=== PATIENT | male | born 1970 | race Two or more races ===

== ENCOUNTER 2022-01-20 10:53 | Emergency (ER) | payer BC, OTHER ==
[~2022-01-20] VITALS: Ht 175.3 cm; Wt 112.5 kg
[2022-01-20 12:15] LABS: Basophils # (auto) 0.1 10 ^3/uL (0-0.2); Basophils % (auto) 1.4 % (0.0-2.0); Eosinophils # (auto) 0.2 10 ^3/uL (0-0.8); Eosinophils % (auto) 1.7 % (0.0-7.0); Hematocrit 38.5 % (41.0-53.0); Hemoglobin 12.9 g/dL (13.5-17.5); Lymphocytes # (auto) 3.1 10 ^3/uL (0.4-5.4); Lymphocytes % (auto) 29.9 % (10.0-50.0); Mean Corpuscular Hemoglobin 27.4 pg (28.0-32.0); Mean Corpuscular Hgb Conc. 33.4 g/dL (32.0-36.0); Mean Corpuscular Volume 82.1 fL (80.0-100.0); Monocytes # (auto) 0.8 10 ^3/uL (0-1.3); Monocytes % (auto) 7.3 % (0.0-12.0); Neutrophils # (auto) 6.2 10 ^3/uL (1.6-8.6); Neutrophils % (auto) 59.7 % (37.0-80.0); Nucleated Red Blood Cells % 0.1 %; Red Blood Cells 4.69 10^6/uL (4.5-5.90); Red Cell Distribution Width 14.2 % (11.8-14.3); White Blood Cell 10.3 10^3/uL (4.4-10.8)
[2022-01-20 12:33] LABS: Albumin 3.1 g/dL (3.4-5.0); Calcium 8.7 mg/dL (8.5-10.1); Potassium 3.1 mmol/L (3.5-5.1)
[2022-01-20 12:36] LABS: BUN/Creatinine Ratio 16.3; Bilirubin, Total 0.5 mg/dL (0.2-1.0); Total Protein 7.2 g/dL (6.4-8.2)
[2022-01-20] MEDS ORDERED: PANTOPRAZOLE 40 MG TAB PO ONE (14:15)
[2022-01-20] MEDS ORDERED: HYDROcodone-ACET 5/325MG TAB PO ONE (14:15)
[2022-01-20] MEDS ORDERED: ONDANSETRON ODT 4 MG TAB PO ONE (14:15)
[2022-01-20] MEDS ORDERED: PANT40TA2 PO (14:25)
[2022-01-20] MEDS ORDERED: ONDA-144 PO (14:25)
[2022-01-20] MEDS ORDERED: POTASSIUM EFFERVESENT TAB 25 MEQ PO ONE (15:15)
[2022-01-20 15:19] VITALS: BP 135/78
== END 2022-01-20 15:20 | disposition home or self-care (01) ==
LOC: ER 10:53
DX: K21.9 Gastro-esophageal reflux disease without esophagitis (principal); E11.9 Type 2 diabetes mellitus without complications; I10 Essential (primary) hypertension; Z88.8 Allergy status to other drugs, medicaments and biological substances
CPT/HCPCS: 36415; 76705; 80053; 82150; 83690; 84484; 85025; 93005; 99285; Q0162

== ENCOUNTER 2023-01-25 15:28 | Inpatient (IN) | payer BC, OTHER ==
[~2023-01-25] VITALS: Ht 175.3 cm; Wt 91.9 kg
[~2023-01-25 15:28] MED LIST: ONDA-144 PO; PANT40TA2 PO
[2023-01-25 16:47] LABS: Basophils # (auto) 0.1 10 ^3/uL (0-0.2); Lymphocytes # (auto) 2.1 10 ^3/uL (0.4-5.4); Mean Corpuscular Hgb Conc. 33.4 g/dL (32.0-36.0); Neutrophils # (auto) 7.5 10 ^3/uL (1.6-8.6); Red Cell Distribution Width 14.6 % (11.8-14.3)
[2023-01-25 16:49] LABS: Basophils % (auto) 1.1 % (0.0-2.0); Eosinophils # (auto) 0.2 10 ^3/uL (0-0.8); Eosinophils % (auto) 1.6 % (0.0-7.0); Hematocrit 39.5 % (41.0-53.0); Hemoglobin 13.2 g/dL (13.5-17.5); Lymphocytes % (auto) 19.2 % (10.0-50.0); Mean Corpuscular Hemoglobin 26.5 pg (28.0-32.0); Mean Corpuscular Volume 79.4 fL (80.0-100.0); Monocytes # (auto) 0.9 10 ^3/uL (0-1.3); Monocytes % (auto) 8.2 % (0.0-12.0); Neutrophils % (auto) 69.9 % (37.0-80.0); Nucleated Red Blood Cells % 0.2 %; Red Blood Cells 4.98 10^6/uL (4.5-5.90); White Blood Cell 10.8 10^3/uL (4.4-10.8)
[2023-01-25 17:11] LABS: Albumin 3.2 g/dL (3.4-5.0); Calcium 8.7 mg/dL (8.5-10.1)
[2023-01-25 17:12] LABS: BUN/Creatinine Ratio 17.1 (10.0-20.0); Bilirubin, Total 0.4 mg/dL (0.2-1.0); Total Protein 7.6 g/dL (6.4-8.2)
[2023-01-25 17:42] LABS: Potassium 2.8 mmol/L (3.5-5.1)
[2023-01-25] MEDS ORDERED: POTASSIUM CHL 20 Meq TABLET PO ONE (18:00)
[2023-01-25] MEDS ORDERED: POTASSIUM CHL 20MEQ/100ML 100 ML IV ONE (18:00)
[2023-01-25 19:22] LABS: Urine Bacteria NONE SEEN /hpf (None Seen); Urine Blood Negative /uL (Negative); Urine Hyaline Cast FEW /lpf (0 - 2); Urine Specific Gravity 1.008 (1.001-1.035); Urine WBC <1 /hpf (0 - 3)
[2023-01-25] MEDS ORDERED: TEMAZEPAM 15 MG CAP PO PRN (21:45)
[2023-01-25] MEDS ORDERED: ONDANSETRON HCL 4 MG/2 ML VIAL IV PRN (21:45)
[2023-01-25] MEDS ORDERED: ACETAMINOPHEN 325 MG TAB PO PRN (21:45)
[2023-01-25] MEDS ORDERED: DEXTROSE (50%) 50ML SYRG IV PRN (21:45)
[2023-01-25] MEDS: ACCU-CHEK COMFORT CURVE STRIP VI SCH (22:09)
[2023-01-25] MEDS: InsuLIN REG 1unit/0.01ml Soln (100units/ml) SC SCH (22:19)
[2023-01-26 05:22] LABS: BUN/Creatinine Ratio 17.2 (10.0-20.0); Potassium 3.5 mmol/L (3.5-5.1)
[2023-01-26 05:23] LABS: Calcium 8.4 mg/dL (8.5-10.1)
[2023-01-26] MEDS ORDERED: SODIUM CHLORIDE 0.9% 500 ML IV ONE (06:30)
[2023-01-26] MEDS: ACCU-CHEK COMFORT CURVE STRIP VI SCH ×4 (06:30→22:23)
[2023-01-26] MEDS: InsuLIN REG 1unit/0.01ml Soln (100units/ml) SC SCH ×4 (06:31→22:24)
[2023-01-26] MEDS: FUROSEMIDE 40 MG TAB PO SCH (11:07)
[2023-01-26] MEDS: POTASSIUM CHL 20 Meq TABLET PO SCH (11:07)
[2023-01-26] MEDS: VALSARTAN 80 MG TAB PO SCH (11:08)
[2023-01-26] MEDS ORDERED: LACTATED RINGER'S 1,000 ML IV ONE (12:00)
[2023-01-26 12:32] LABS: Free T4 (Free Thyroxine) 1.29 ng/dL (0.89-1.76)
[2023-01-26 12:33] LABS: Folate (Folic Acid) 12.97 ng/mL (5.38-24)
[2023-01-26 21:58] VITALS: BP 121/70
[2023-01-26] MEDS ORDERED: HYDR25TA4 PO (22:12)
[2023-01-26] MEDS ORDERED: ATEN-60 PO (22:12)
[2023-01-26] MEDS ORDERED: EMPA1TAB3 PO (22:12)
[2023-01-26] MEDS ORDERED: POTA-220 PO (22:12)
[2023-01-26] MEDS ORDERED: METF-370 PO (22:12)
[2023-01-26] MEDS ORDERED: VALS320T15 PO (22:12)
[2023-01-26] MEDS ORDERED: FAMO-12 PO (22:16)
[2023-01-26] MEDS ORDERED: ATOR40TA52 PO (22:16)
[2023-01-26] MEDS ORDERED: FURO1TAB31 PO (22:16)
[2023-01-26] MEDS ORDERED: CHOL20007 PO (22:16)
[2023-01-26] MEDS ORDERED: GLIP5TAB12 PO (22:17)
[2023-01-27] MEDS: ACCU-CHEK COMFORT CURVE STRIP VI SCH ×3 (06:25→17:00)
[2023-01-27] MEDS: InsuLIN REG 1unit/0.01ml Soln (100units/ml) SC SCH ×3 (06:26→17:00)
[2023-01-27 09:00] VITALS: BP 129/75
[2023-01-27] MEDS: VALSARTAN 80 MG TAB PO SCH (10:23)
[2023-01-27] MEDS: POTASSIUM CHL 20 Meq TABLET PO SCH (10:23)
[2023-01-27] MEDS: FUROSEMIDE 40 MG TAB PO SCH (10:23)
[2023-01-27 14:33] VITALS: BP 142/75
[2023-01-27] MEDS ORDERED: POTASSIUM CHL 20 Meq TABLET PO ONE (15:15)
[2023-01-27] MEDS ORDERED: POTA-220 PO (15:46)
[2023-01-27 16:56] VITALS: BP 132/91
== END 2023-01-27 18:17 | disposition home or self-care (01) | DRG 641 ==
LOC: ER 15:28 → EDBD 15:28 → OVERFLOW 21:42 → WEST WING 01-26 21:16
PROVIDERS: ADMIT Nurse Practitioner; ATTEND Internal Medicine
DX: E87.6 Hypokalemia (principal); N17.9 Acute kidney failure, unspecified; I11.0 Hypertensive heart disease with heart failure; E11.9 Type 2 diabetes mellitus without complications; E78.5 Hyperlipidemia, unspecified; I50.9 Heart failure, unspecified; I08.0 Rheumatic disorders of both mitral and aortic valves; Z88.8 Allergy status to other drugs, medicaments and biological substances
CPT/HCPCS: 36415; 70450; 71045; 80048; 80053; 81001; 82607; 82746; 82962; 83036; 83735; 84439; 84443; 84484; 85025; 93005; 93306; 93886; 96365; 96366; G0378; J1815; J3480